=== PATIENT | male | born 1985 | race African-American/Black ===

== ENCOUNTER 2016-06-08 10:12 | Emergency (ER) | payer MEDICAID ==
[~2016-06-08] VITALS: Ht 188 cm; Wt 104.3 kg
[~2016-06-08 10:12] MED LIST: LISI40TA PO; [UNRECOGNIZED DRUG - CODE] OT
[2016-06-08 10:28] VITALS: BP 136/54
== END 2016-06-08 10:48 | disposition home or self-care (01) ==
LOC: ER 10:12
DX: H66.91 Otitis media, unspecified, right ear (principal); K21.9 Gastro-esophageal reflux disease without esophagitis; I10 Essential (primary) hypertension; F17.210 Nicotine dependence, cigarettes, uncomplicated

== ENCOUNTER 2018-01-08 22:24 | Emergency (ER) | payer MEDICAID ==
[~2018-01-08] VITALS: Ht 188 cm; Wt 117.9 kg
[2018-01-08 23:09] LABS: Basophils # (auto) 0 uL; Basophils % (auto) 0.5 % (0.0-2.0); Eosinophils # (auto) 0.1 uL; Eosinophils % (auto) 1.6 % (0.0-7.0); Hemoglobin 13.8 g/dL (13.5-17.5); Lymphocytes # (auto) 2.1 uL; Lymphocytes % (auto) 29.9 % (10.0-50.0); Mean Corpuscular Hemoglobin 28.2 pg (28.0-32.0); Mean Corpuscular Hgb Conc. 32.9 g/dL (32.0-36.0); Mean Corpuscular Volume 85.6 fL (80.0-100.0); Monocytes # (auto) 0.6 uL; Monocytes % (auto) 9.1 % (0.0-12.0); Neutrophils # (auto) 4.1 uL; Neutrophils % (auto) 58.9 % (37.0-80.0); Nucleated Red Blood Cells % 0.1 %; Platelet Count (auto) 198 10^3/uL (140-450); Red Blood Cells 4.91 10^6/uL (4.5-5.90)
[2018-01-08 23:17] LABS: INR 0.96 (0.9-1.15); Partial Thromboplastin Time 28.8 sec (23.78-33.04); Prothrombin Time 10.3 sec (9.27-12.13)
[2018-01-08 23:21] LABS: Albumin 3.8 g/dL (3.4-5.0); Calcium 8.7 mg/dL (8.5-10.1); Potassium 3.8 mmol/L (3.5-5.1)
[2018-01-08 23:25] LABS: Bilirubin, Total 0.4 mg/dL (0.2-1.0); Total Protein 7.7 g/dL (6.4-8.2)
[2018-01-09 01:46] LABS: Urine Bacteria NONE SEEN /hpf (None Seen); Urine Blood Negative /uL (Negative); Urine Mucus FEW (None Seen); Urine Specific Gravity 1.016 (1.001-1.035); Urine WBC <1 /hpf (0 - 3)
[2018-01-09 09:05] VITALS: BP 125/63
== END 2018-01-09 12:19 | disposition home or self-care (01) ==
LOC: ER 22:37
DX: R10.9 Unspecified abdominal pain (principal); K21.9 Gastro-esophageal reflux disease without esophagitis; I10 Essential (primary) hypertension; F17.210 Nicotine dependence, cigarettes, uncomplicated; Z79.899 Other long term (current) drug therapy
CPT/HCPCS: 36415; 74176; 80053; 81001; 82150; 83690; 85025; 85610; 85730

== ENCOUNTER 2018-02-07 16:04 | Emergency (ER) | payer MEDICAID ==
[~2018-02-07] VITALS: Ht 188 cm; Wt 118.4 kg
[2018-02-07 16:47] LABS: Basophils # (auto) 0 uL; Basophils % (auto) 0.4 % (0.0-2.0); Eosinophils # (auto) 0.1 uL; Eosinophils % (auto) 0.6 % (0.0-7.0); Hematocrit 46.8 % (41.0-53.0); Hemoglobin 15.7 g/dL (13.5-17.5); Mean Corpuscular Hemoglobin 28.6 pg (28.0-32.0); Mean Corpuscular Hgb Conc. 33.5 g/dL (32.0-36.0); Mean Corpuscular Volume 85.2 fL (80.0-100.0); Monocytes # (auto) 0.7 uL; Monocytes % (auto) 7.6 % (0.0-12.0); Neutrophils # (auto) 6.4 uL; Neutrophils % (auto) 69.4 % (37.0-80.0); Nucleated Red Blood Cells % 0.1 %; Platelet Count (auto) 236 10^3/uL (140-450); Red Blood Cells 5.49 10^6/uL (4.5-5.90); Red Cell Distribution Width 12.8 % (11.8-14.3); White Blood Cell 9.2 10^3/uL (4.4-10.8)
[2018-02-07 16:58] LABS: Albumin 4.5 g/dL (3.4-5.0); BUN/Creatinine Ratio 15.2; Potassium 3.8 mmol/L (3.5-5.1)
[2018-02-07 17:02] LABS: Bilirubin, Total 0.4 mg/dL (0.2-1.0)
[2018-02-07 19:12] LABS: Amylase 74 U/L (25-115); Lipase 147 U/L (73-393)
[2018-02-07] MEDS ORDERED: IOHEXOL 300 MG/ML 100ML BOTTLE IJ ONE (19:51)
[2018-02-07] MEDS ORDERED: ALUM & MAG HYDROX-SIMETH LIQ(MAALOX) 30 ML PO ONE (21:45)
[2018-02-07 21:58] VITALS: BP 148/79
== END 2018-02-07 22:11 | disposition home or self-care (01) ==
LOC: ER 16:10
DX: R07.89 Other chest pain (principal); K52.9 Noninfective gastroenteritis and colitis, unspecified; I10 Essential (primary) hypertension; K21.9 Gastro-esophageal reflux disease without esophagitis; F17.210 Nicotine dependence, cigarettes, uncomplicated; F12.10 Cannabis abuse, uncomplicated; Z88.8 Allergy status to other drugs, medicaments and biological substances
CPT/HCPCS: 36415; 74177; 80053; 82150; 83690; 84484; 85025; 94761; 99285; Q9967; 93005

== ENCOUNTER 2018-05-07 09:41 | Emergency (ER) | payer MEDICAID ==
[~2018-05-07] VITALS: Ht 188 cm; Wt 111.1 kg
[2018-05-07 09:55] VITALS: BP 146/92
== END 2018-05-07 11:17 | disposition home or self-care (01) ==
LOC: ER 09:41
DX: I10 Essential (primary) hypertension (principal); K21.9 Gastro-esophageal reflux disease without esophagitis; F17.210 Nicotine dependence, cigarettes, uncomplicated; F12.10 Cannabis abuse, uncomplicated; Z88.8 Allergy status to other drugs, medicaments and biological substances; Z76.0 Encounter for issue of repeat prescription

== ENCOUNTER 2018-05-10 09:12 | Emergency (ER) | payer MEDICAID ==
[~2018-05-10] VITALS: Ht 188 cm; Wt 104.3 kg
[2018-05-10 10:07] VITALS: BP 136/98
== END 2018-05-10 10:26 | disposition home or self-care (01) ==
LOC: ER 09:12
DX: S16.1XXA Strain of muscle, fascia and tendon at neck level, initial encounter (principal); G44.209 Tension-type headache, unspecified, not intractable; I10 Essential (primary) hypertension; K21.9 Gastro-esophageal reflux disease without esophagitis; F17.210 Nicotine dependence, cigarettes, uncomplicated; F12.10 Cannabis abuse, uncomplicated; X58.XXXA Exposure to other specified factors, initial encounter; Y93.89 Activity, other specified; Y99.8 Other external cause status; Y92.89 Other specified places as the place of occurrence of the external cause
CPT/HCPCS: 70450

== ENCOUNTER 2018-06-05 15:48 | Emergency (ER) | payer MEDICAID ==
[~2018-06-05] VITALS: Ht 188 cm; Wt 106.6 kg
[2018-06-05 19:09] VITALS: BP 148/89
[2018-06-05] MEDS ORDERED: IBUPROFEN 400 MG TAB PO ONE (19:30)
== END 2018-06-05 20:41 | disposition home or self-care (01) ==
LOC: ER 15:53
DX: M25.78 Osteophyte, vertebrae (principal); M51.06 Intervertebral disc disorders with myelopathy, lumbar region; K21.9 Gastro-esophageal reflux disease without esophagitis; I10 Essential (primary) hypertension; F17.210 Nicotine dependence, cigarettes, uncomplicated; F12.10 Cannabis abuse, uncomplicated; X50.1XXA Overexertion from prolonged static or awkward postures, initial encounter; Y93.B9 Activity, other involving muscle strengthening exercises; Y92.39 Other specified sports and athletic area as the place of occurrence of the external cause; Y99.8 Other external cause status
CPT/HCPCS: 72131